=== PATIENT | male | born 1995 | race Caucasian/White ===

== ENCOUNTER 2024-05-17 10:24 | Emergency (ER) | payer OTHER ==
[~2024-05-17] VITALS: Ht 172.7 cm; Wt 60.0 kg
[2024-05-17 10:31] VITALS: O2SAT 100
[2024-05-17 11:07] VITALS: BP 152/77; PULSE 69; RESP 18; TEMP 98.4; O2SAT 100
[2024-05-17] MEDS ORDERED: IBUP-2029 PO (12:09)
== END 2024-05-17 12:49 | disposition home or self-care (01) ==
LOC: ER 10:24
DX: S93.401A Sprain of unspecified ligament of right ankle, initial encounter (principal); W22.8XXA Striking against or struck by other objects, initial encounter; Y93.89 Activity, other specified; Y92.89 Other specified places as the place of occurrence of the external cause; Y99.8 Other external cause status
CPT/HCPCS: 73610; 99283